=== PATIENT | female | born 1965 | race Asian ===

== ENCOUNTER → 2018-03-11 16:49 | Outpatient (CLI) | payer OTHER, SELFPAY ==
--- NOTE | 2018-03-18 10:34 | PM.PFT.1 ---
Pulmonary Function Test Referral & Results Date Patient Seen: 03/11/18 Requesting provider: Daija Gtz Indication: Asthma Results: The spirometry demonstrates an FVC of 2.99 L which is 84% of predicted. The FEV1 was measured at 2.26 L which is 81% of predicted. The FEV1/FVC ratio was 76 which is 94% of predicted. Following the administration of bronchodilator there was a 10% improvement in FEV1 and a 47% improvement in FEF 25-75%. No lung volumes were performed No diffusing capacity was performed No maximum voluntary ventilation was performed Interpretation: Patient's spirometry limited to force volumes demonstrates mild obstructive lung disease with evidence of some benefit following bronchodilator particularly in small airway flow based on improvement in FEF 25-75%, but this improvement fails to meet the criteria for significance which is usually a 20% improvement in FEV1 or more Clinical correlation suggested
== END ==
PROVIDERS: Visit Provider Family Medicine
DX: J45.909 Unspecified asthma, uncomplicated (principal)
CPT/HCPCS: 94010; 94060